=== PATIENT | female | born 1945 | race Caucasian/White ===

== ENCOUNTER 2016-11-05 15:12 | Emergency (ER) | payer MEDICARE, BC ==
[2016-11-05] MEDS ORDERED: ACETAMINOPHEN 325 MG TABLET PO ONE (15:45)
[2016-11-05] MEDS ORDERED: DIPHTH,PERTUSS(ACELL),TET TOX 0.5 ML DISP.SYRIN. VAX IM ONE (16:30)
--- NOTE | 2016-11-05 16:30 | RAD ---
CT of the head without contrast, 11/05/2016: History: Head trauma, fall There is a scalp hematoma in the left posterior parietal region. No underlying fracture is identified. The ventricles are within normal limits in size. There is no shift of the midline structures. There is no evidence of acute intracranial hemorrhage or mass effect. IMPRESSION: No acute intracranial abnormality is detected. CT of the cervical spine without contrast, 11/05/2016: Noncontrast scans were obtained with multiplanar reconstructions produced. There is considerable disc space narrowing and marginal spurring throughout the mid and lower cervical spine. There are moderate degenerative changes involving scattered facet joints bilaterally. The combination of findings is causing mild central spinal stenosis at C5-6 and C6-7 as well as mild foraminal stenosis at scattered levels bilaterally. No acute fracture or dislocation is identified. There is moderate calcific plaquing at the right carotid bifurcation. IMPRESSION: 1. Moderate multilevel degenerative change. 2. No acute bony abnormality is detected. PQRS Compliance Statement: One or more of the following individualized dose reduction techniques were utilized for this examination: 1. Automated exposure control 2. Adjustment of the mA and/or kV according to patient size 3. Use of iterative reconstruction technique
--- NOTE | 2016-11-05 16:32 | RAD ---
Left knee, 3 views, 11/05/2016: History: Fall, knee pain and swelling No acute fracture or dislocation is identified. There is mild marginal spurring. Calcifications along the posterior margin of the knee joint probably representing a combination of spurs and possible small loose bodies. There is a suggestion of a small knee joint effusion. IMPRESSION: No acute bony abnormality is detected.
--- NOTE | 2016-11-05 17:09 | PHYS DOC ---
General Chief Complaint: MECHANICAL FALL Stated Complaint: FALL/HEAD LACERATION Time Seen by MD: 15:25 Source: patient Exam Limitations: no limitations Problems: History of Present Illness Initial Comments Patient is a 71-year-old female brought to the ED by spouse with fall injury. Patient states she was descending a flight of stairs at home when she missed the bottom step with her left foot causing her to fall. She states that she fell forward hitting her left posterior occiput either on the concrete wall or floor. She thinks she lost consciousness for an unknown period of time, but was able to get up by herself at which time she noticed her left knee was hurting. She's not certain the mechanism by which she hurt her left knee. She complains of moderate medial left knee pain worse with valgus stress, she was ambulatory on it and had no perceived extra motion, crepitus, or joint failure/giving out. She denies numbness tingling weakness or radiating symptoms in the left lower extremity. She had some mild bleeding from the abrasion of the back of her head which resolved prior to ED arrival. She was nauseous initially but that has resolved prior to ED arrival and she denies focal neuro deficits. She complains of a global headache moderate described as throbbing as well as sharp pain at the site of the abrasion. She also complains of generalized neck discomfort without localized swelling and states her muscles in her neck feel stiff. Her spouse states that her affect appears to be at her baseline and the patient denies any new or progressive symptoms since the fall. Estimated fall time once about 1 hour ago. Tetanus status is not up-to-date. The patient does not take blood thinners other than aspirin daily for heart health. She denies prior concussion. No fever chills sweats or myalgias no chest pain difficulty breathing vision changes bowel or bladder symptoms. Occurred: this afternoon Severity: moderate Injuries/Pain Location: head, lower extremity Context: slipped Loss of Consciousness: brief (seconds) Modifying Factors: worse with jarring, worse with movement, improves with rest Associated Symptoms: headache, nausea/vomiting, neck pain, trouble walking Allergies: Coded Allergies: No Known Drug Allergies (Unverified , 11/05/16) Past Medical History Medical History: other (tachyarrhythmia NOS, glucose intolerance, skin cancer left ear) Surgical History: other (left ankle fracture repair, right leg fracture repair with rods, cataracts, lumpectomy) Social History Smoker: non-smoker Alcohol: none Drugs: none Review of Systems Constitutional: denies chills, denies diaphoresis, denies fever, malaise Eyes: denies blindness, denies blurred vision, denies drainage, denies decreased acuity, photophobia Ears, Nose, Mouth, Throat: denies ear discharge, denies nose discharge, denies epistaxis, denies mouth pain, denies mouth swelling, denies loose teeth, denies throat pain Respiratory: denies cough, denies shortness of breath, denies wheezing Cardiovascular: denies chest pain, denies palpitations, syncope Gastrointestinal: denies abdominal pain, denies diarrhea, nausea, denies vomiting Musculoskeletal: denies back pain, joint pain, joint swelling, muscle stiffness , neck pain Skin: see HPI Psychiatric/Neurological: see HPI, headache Physical Exam General Appearance: mild distress, obese Head: other (mild swelling noted at the left occiput with a 2 cm roundish superficial abrasion. There are no foreign bodies no active bleeding no missing tissue. No palpable bony deformity and head is otherwise normocephalic atraumatic.) Eyes: bilateral eye normal inspection, bilateral eye EOMI Ears, Nose, Mouth, Throat: hearing grossly normal, no evidence of ENT injury ( no ear or nose discharge no fluid behind TMs bilaterally, negative [place] sign negative raccoon eyes), no dental injury Neck: limited range of motion (no palpable bony step-off or deformity, generalized tenderness not localizable specifically to bone), muscle spasm, painful range of motion, paraspinous muscle tender Cardiovascular/Respiratory: normal peripheral pulses, normal breath sounds, no respiratory distress Gastrointestinal: non tender, soft Extremities: pelvis stable, pain with movement, other (left knee: No appreciable effusion, there is tenderness at the MCL and with valgus stress however the ligament is intact. Meng test is limited due to patient intolerance due to discomfort, there is no joint line tenderness or lateral knee tenderness. There is no bruising or abrasions or other skin changes. Patient is ambulatory with a limp favoring this knee) Neurologic/Psychiatric: line tester II-XII nml as tested, no motor/sensory deficits, alert, normal mood/affect, oriented x 3 Skin: normal color, warm/dry (occipital abrasion as above) Beverly Coma Score Best Eye Response: (4) open spontaneously Best Verbal Response: (5) oriented Best Motor Response: (6) obeys commands Beverly Total: 15 Orders, Labs, Meds PATIENT: ALEKSANDR DAVIS ACCOUNT: [id number] : 1945 LOCATION: ER AGE: 71 SEX: F EXAM STATUS: REG ER ORD. PHYSICIAN: PRATIBHA NARVAEZ DO REASON: fall, knee pain/swell PROCEDURE: KNEE LEFT 3V Left knee, 3 views, 11/05/2016: History: Fall, knee pain and swelling No acute fracture or dislocation is identified. There is mild marginal spurring. Calcifications along the posterior margin of the knee joint probably representing a combination of spurs and possible small loose bodies. There is a suggestion of a small knee joint effusion. IMPRESSION: No acute bony abnormality is detected. DICTATED AND SIGNED BY: KAM QUINONES MD DATE: 11/05/16 1628 CC: KELLI JENKINS MD; PRATIBHA NARVAEZ DO ~ PATIENT: ALEKSANDR DAVIS ACCOUNT: [id number] : 1945 LOCATION: ER AGE: 71 SEX: F EXAM STATUS: REG ER ORD. PHYSICIAN: PRATIBHA NARVAEZ DO REASON: head trauma w/LOC PROCEDURE: CT HEAD AND CERVICAL SPINE WO CT of the head without contrast, 11/05/2016: History: Head trauma, fall There is a scalp hematoma in the left posterior parietal region. No underlying fracture is identified. The ventricles are within normal limits in size. There is no shift of the midline structures. There is no evidence of acute intracranial hemorrhage or mass effect. IMPRESSION: No acute intracranial abnormality is detected. CT of the cervical spine without contrast, 11/05/2016: Noncontrast scans were obtained with multiplanar reconstructions produced. There is considerable disc space narrowing and marginal spurring throughout the mid and lower cervical spine. There are moderate degenerative changes involving scattered facet joints bilaterally. The combination of findings is causing mild central spinal stenosis at C5-6 and C6-7 as well as mild foraminal stenosis at scattered levels bilaterally. No acute fracture or dislocation is identified. There is moderate calcific plaquing at the right carotid bifurcation. IMPRESSION: 1. Moderate multilevel degenerative change. 2. No acute bony abnormality is detected. PQRS Compliance Statement: One or more of the following individualized dose reduction techniques were utilized for this examination: 1. Automated exposure control 2. Adjustment of the mA and/or kV according to patient size 3. Use of iterative reconstruction technique DICTATED AND SIGNED BY: KAM QUINONES MD DATE: 11/05/16 2894 CC: KELLI JENKINS MD; PRATIBHA NARVAEZ DO ~ Patient received tetanus vaccination. Her symptoms are overall steadily improved throughout the ED course, no new or progressive symptoms. Knee immobilizer placed the extremity was neurovascularly intact distal to the immobilizer. I discussed the discharge plan and possible need for MRI the patient's questions were answered. Departure Time of Disposition: 17:09 Disposition: 01 HOME, SELF-CARE Diagnosis: concussion, L MCL sprain, scalp abrasion, fall Condition: STABLE Patient Instructions: Concussion and Brain Injury, Sazl-wy-Bruc, Fall Prevention and Home Safety, [id number], Knee Sprain Additional Instructions: RICE, see handout. Drink plenty of fluids to avoid dehydration. Nonweight bearing crutches only until doctor follow up. Wear knee immobilizer as needed. OTC tylenol as needed. Hold your aspirin for 48 hours. No exertion or strenuous activity until cleared by your doctor. In general, remain in cool temp dimly lit environment for optimal symptom control. Follow up with your doctor Thursday for recheck. Return to ED with new or changing symptoms. PRATIBHA NARVAEZ DO Nov 05, 2016 17:09
[2016-11-05 17:40] VITALS: BP 148/92
== END 2016-11-05 17:40 | disposition home or self-care (01) ==
LOC: ER 15:12
DX: S06.0X0A Concussion without loss of consciousness, initial encounter (principal); S83.412A Sprain of medial collateral ligament of left knee, initial encounter; S00.03XA Contusion of scalp, initial encounter; W10.8XXA Fall (on) (from) other stairs and steps, initial encounter; Y93.89 Activity, other specified; Y99.8 Other external cause status; Y92.89 Other specified places as the place of occurrence of the external cause
CPT/HCPCS: 29505; 70450; 72125; 73562; 90471; 90715; 99284-25

== ENCOUNTER 2020-05-30 15:29 | Emergency (ER) | payer BC, MEDICARE ==
[~2020-05-30] VITALS: Ht 157.5 cm; Wt 85.6 kg
[2020-05-30 15:32] VITALS: BP 158/92
--- NOTE | 2020-05-30 16:10 | PHYS DOC ---
Past History Past Medical History: Diabetes, Hypertension, Other Past Surgical History: Hysterectomy, Other Additional Past Surgical Histo: right leg surgery, left foot surgery, bilateral lumpectomy, cataract Alcohol Use: None Drug Use: None General Adult EDM: Chief Complaint: MECHANICAL FALL HPI: HPI: Patient is a 75 year old female who presents with mechanical fall. Patient fell down one step and struck her face and right knee. She had no loss of consciousness. Major complaint now is a headache and throbbing nasal septum tenderness worse with palpation. She reports no cervical midline tenderness or neck pain. She does not take any blood thinners. No septal hematoma noted on exam. She has an upper lip intermucosal abrasion from her teeth due to the fall. She has no tooth damage or dental chipping. Knee ROM is intact, but has tenderness to area where she fell--below the patella. Patient is neurologically intact. She reports feeling anxious and wanting to get imaging done as her from a fall last year. She does not want pain medication at this time. Review of Systems: Review of Systems: Constitutional: Denies fever or chills Eyes: Denies redness or eye pain HENT: Denies nasal congestion or sore throat Respiratory: Denies cough or shortness of breath Cardiovascular: Denies chest pain or palpitations GI: Denies abdominal pain, nausea, or vomiting : Denies dysuria or hematuria Musculoskeletal: Denies back pain or neck pain. Reports right knee pain Integument: Denies rash or skin lesions Neurologic: Denies focal weakness or sensory changes. Reports headache Complete systems were reviewed and found to be within normal limits, except as documented in this note. Allergies: Allergies: Allergies Coded Allergies Type Severity Reaction Last Updated Verified No Known Drug Allergies 11/05/16 No Physical Exam: PE: Constitutional: Well developed, well nourished, no acute distress, non-toxic appearance HENT: Normocephalic. Nasal bruising present and pain to palpation. No nasal hematoma. Scalp abrasion present. Eyes: PERRL, EOMI, conjunctiva normal, no discharge Neck: Normal range of motion, no tenderness, supple Lungs & Thorax: No respiratory distress, equal chest rise and fall Abdomen: Soft, no tenderness Skin: Warm, dry, no erythema, no rash Back: No tenderness, no CVA tenderness Extremities: Right knee tenderness, ROM intact, no edema Neurologic: Alert and oriented X 3, normal motor function, normal sensory function, no focal deficits noted Psychologic: Affect normal, judgment normal Current Patient Data: Vital Signs: Vital Signs Date Time Temp Pulse Resp B/P (MAP) Pulse Ox O2 Delivery O2 Flow Rate FiO2 05/30/20 15:32 97.8 93 16 158/92 (114) 96 Room Air EKG: EKG: [] Radiology/Procedures: Radiology/Procedures: [] Heart Score: C/O Chest Pain: N/A Course & Med Decision Making: Course & Med Decision Making Pertinent Imaging studies reviewed. (See chart for details) Patient stable for discharge with outpatient follow-up with PCP. Discussed findings and plan with patient, who acknowledges understanding and agreement. Chen Disclaimer: Chen Disclaimer: This electronic medical record was generated, in whole or in part, using a voice recognition dictation system. Departure Departure: Impression: Primary Impression: Fall Qualified Codes: W19.XXXA - Unspecified fall, initial encounter Additional Impressions: Contusion of face Qualified Codes: S00.83XA - Contusion of other part of head, initial encounter Contusion of knee, right Qualified Codes: S80.01XA - Contusion of right knee, initial encounter Abrasion Disposition: 01 DC HOME SELF CARE/HOMELESS Condition: STABLE Referrals: KELLI JENKINS MD (PCP) Patient Instructions: Abrasion, [id number], Contusion, [id number], Facial or Scalp Contusion, Dxnq-li-[id number], Fall Prevention and Home Safety, [id number], Knee Wraps (Elastic Bandage) and RICE Additional Instructions: ICE areas of discomfort 20 min on then leave off next 20 mins. Repeat several times daily as needed for pain. May also take over the counter Tylenol and/or Ibuprofen for pain or discomfort. Do not soak your wounds. You may shower. Clean wound daily with soap and water. Use over the counter antibiotic ointment. MOOK FULLER DO May 30, 2020 16:10
[2020-05-30] MEDS ORDERED: NEOMY/BACITR/POLYMYXIN OINT PACKET. TP ONE (16:15)
--- NOTE | 2020-05-30 16:36 | RAD ---
EXAM: Right knee, 3 views. HISTORY: Pain. Fall. COMPARISON: None. FINDINGS: 3 views of the right knee are obtained. There is no fracture, dislocation or subluxation. N o joint effusion is seen. IMPRESSION: No acute osseous finding. Electronically signed by: Korina Klein MD (05/30/2020 4:34 PM) [id number]
--- NOTE | 2020-05-30 16:40 | RAD ---
EXAM: Head CT without contrast; cervical spine CT without contrast; maxillofacial bone CT without con trast. HISTORY: Fall. Pain. TECHNIQUE: Computed tomographic images of the head, maxillofacial bones and cervical spine were obtai amelia without contrast. *One or more of the following individualized dose reduction techniques were utilized for this examina tion: 1. Automated exposure control. 2. Adjustment of the mA and/or kV according to patient size. 3. Use of iterative reconstruction technique. COMPARISON: None. FINDINGS: Head: There is no hemorrhage. There is no mass effect or midline shift. There is no hydrocephalus. No calvarial lesion is seen. The duvall-white matter differentiation pattern is intact. The sella is prom inent in size. This is not clearly an empty sella. Maxillofacial bones: The temporomandibular joints are intact. No displaced fracture is seen. There is a tiny inferior left maxillary sinus mucous retention cyst. There is rightward nasal septal deviatio n. The ostiomeatal meatal units are patent. There is evidence of lens surgery. There is minimal fluid within the inferior right mastoid air cells. Cervical spine: There is cervical kyphosis. There is minimal multilevel listhesis. There is degenerat teresa endplate remodeling with disc space narrowing, osteophytosis and Schmorl's node formation primari ly at the mid lower cervical and upper thoracic levels. There is no acute fracture. There is no suspi cious osseous lesion. There is multilevel facet arthropathy. The combination of degenerative changes results in mild to moderate left foraminal stenosis at C2-C3, mild to moderate right greater than left foraminal stenosis at C3-C4, mild to moderate right and mil d left foraminal stenosis at C4-C5, mild central canal stenosis at C5-C6, and mild central canal sten osis at C6-C7. IMPRESSION: 1. No acute intracranial finding or evidence of acute cervical spine trauma or maxillofacial bone tra franco. 2. Multilevel degenerative change involving the cervical spine, described above. Electronically signed by: Korina Klein MD (05/30/2020 4:38 PM) [email or web address]
== END 2020-05-30 17:00 | disposition home or self-care (01) ==
LOC: ER 15:29
DX: S00.33XA Contusion of nose, initial encounter (principal); S80.01XA Contusion of right knee, initial encounter; S00.01XA Abrasion of scalp, initial encounter; E11.9 Type 2 diabetes mellitus without complications; I10 Essential (primary) hypertension; W10.8XXA Fall (on) (from) other stairs and steps, initial encounter; Y93.89 Activity, other specified; Y92.89 Other specified places as the place of occurrence of the external cause; Y99.8 Other external cause status
CPT/HCPCS: 70450; 70486; 72125; 73562; 99285-25